=== PATIENT | male | born 1995 | race Caucasian/White ===

== ENCOUNTER 2023-04-01 12:17 | Emergency (ER) | payer SELFPAY ==
[~2023-04-01] VITALS: Ht 170.2 cm; Wt 65.0 kg
[2023-04-01] MEDS ORDERED: LORAZEPAM 2MG/ML CPJ IM ONE (12:30)
[2023-04-01 14:19] VITALS: RESP 20; O2SAT 98
[2023-04-01 17:50] VITALS: BP 132/80; PULSE 120; TEMP 98.2
== END 2023-04-01 19:06 | disposition home or self-care (01) ==
LOC: ER 13:10 → EDBD 13:10 → ER 19:06
DX: R46.2 Strange and inexplicable behavior (principal)
CPT/HCPCS: 96372; 99283; J2060; Z7610 ×2